=== PATIENT | female | born 1980 | race Caucasian/White ===

== ENCOUNTER 2018-08-28 13:36 | Outpatient (CLI) ==
--- NOTE | 2018-08-28 14:28 | US ---
EXAM: Thyroid ultrasound History: Thyroid disease and thyroid nodules. Comparison: None available. Technique: Multiple sonographic images through the thyroid gland were obtained. Color duplex Dopple r was used to interrogate vascular flow. Findings: The right lobe of the thyroid measures 4.4 cm x 1.6 cm x 1.3 cm and demonstrates multiple nodules wit h the largest being complex and measuring 0.8 cm. The thyroid isthmus measures 0.2 cm in thickness. The left lobe of the thyroid measures 4.2 cm x 0.7 cm x 1.3 cm demonstrates multiple nodules with the largest being complex measuring 0.5 cm. No extrathyroidal masses are identified. The thyroid gland is not hypervascular. Impression: Sub-centimeter benign appearing bilateral thyroid nodules. Follow-up thyroid ultrasound is recommended in 6 months to document stability.
== END 2018-08-28 13:37 | disposition home or self-care (01) ==
LOC: RAD 13:36
PROVIDERS: ATTEND Nurse Practitioner Family
DX: Z86.39 Personal history of other endocrine, nutritional and metabolic disease (principal)